=== PATIENT | female | born 1965 | race Caucasian/White ===

== ENCOUNTER 2016-04-10 09:25 | Emergency (ER) | payer OTHER ==
[2016-04-10 09:44] VITALS: TEMP 98.2
[2016-04-10] MEDS ORDERED: LIDOCAINE/EPINEPHR/TETRACAINE 5 ML BOTTLE TOPICAL ONE (10:13)
[2016-04-10] MEDS ORDERED: GELATIN SPONGE,ABSORB (LARGE) 1 EACH SPONGE TOPICAL STA (10:14)
--- NOTE | 2016-04-10 10:24 | ED ---
General Adult HPI - General Chief complaint: Wound/Laceration Stated complaint: abcess Time Seen by Provider: 04/10/16 09:46 Source: patient, RN notes reviewed Mode of arrival: ambulatory Limitations: no limitations - History of Present Illness Initial comments: Patient is a 50-year-old female presents emergency room for evaluation of bleeding wound. Patient states she had a skin tag removed on Monday by her primary care provider on her back. Patient states that the wound will not stop bleeding. Patient states she's been applying gauze and the wound will bleed through and get all over her sheets and mattress while she is sleeping. Patient states her cannot get the bleeding to stop. Patient states she takes aspirin but denies taking any blood thinners. Patient denies any pain at the area. Patient denies fevers, chills. Patient denies headache or dizziness. Patient denies any other symptoms or complaints. Patient states she just wants the bleeding to stop. - Related Data Home Medications Medication Instructions Recorded Confirmed Aspirin 1 tab PO DAILY 04/10/16 04/10/16 Fluticasone Propionate [Flonase 1 spray INHALATION DAILY 04/10/16 04/10/16 Allergy Relief] Losartan/Hydrochlorothiazide 1 tab PO DAILY 04/10/16 04/10/16 [Losartan-Hctz 100-25 mg Tab] Potassium Chloride [K-Tab ER] 1 tab PO DAILY 04/10/16 04/10/16 Spironolactone [Spironolactone] 1 tab PO DAILY 04/10/16 04/10/16 Allergies Allergy/AdvReac Type Severity Reaction Status Date / Time No Known Allergies Allergy Verified 04/10/16 09:44 Review of Systems ROS Statement: Those systems with pertinent positive or pertinent negative responses have been documented in the HPI. ROS Other: All systems not noted in ROS Statement are negative. Past Medical History Past Medical History: No Reported History History of Any Multi-Drug Resistant Organisms: None Reported Past Surgical History: No Surgical Hx Reported Past Psychological History: No Psychological Hx Reported Smoking Status: Never smoker Past Alcohol Use History: Occasional Past Drug Use History: None Reported General Exam - General Exam Comments Initial Comments: Sitting in exam room in no acute distress. Limitations: no limitations General appearance: alert, in no apparent distress Head exam: Present: atraumatic, normocephalic, normal inspection Neck exam: Present: normal inspection Respiratory exam: Absent: respiratory distress Extremities exam: Present: normal inspection Back exam: Present: normal inspection Neurological exam: Present: alert, oriented X3, CN II-XII intact, normal gait Psychiatric exam: Present: normal affect, normal mood Skin exam: Present: other (1cm superficial open actively bleeding wound on the left side of mid-back) Course Vital Signs 04/10/16 09:40 Temperature 98.2 F Pulse Rate 84 Respiratory 20 Rate Blood Pressure 139/86 O2 Sat by Pulse 99 Oximetry Medical Decision Making - Medical Decision Making Patient's 50-year-old female presents to the emergency room for evaluation of bleeding wound. LET solution was applied over the wound area for approximately 15 minutes and bleeding did subside. Gelfoam was placed over the wound. Advised patient to follow-up with her primary care provider for reevaluation. Patient states she understands discussed with her. Return parameters discussed. Case discussed with Dr. Ventura. Disposition Clinical Impression: Bleeding from wound Disposition: HOME SELF-CARE Condition: Good Instructions: Acute Wound Care (ED) Additional Instructions: Keep gel foam on for the next 48 hours. Please follow up with primary care provider next week for reevaluation. If any new symptom arises, symptoms worsen or fever develops, return to ER as soon as possible. Referrals: Al Loja MD [Primary Care Provider] - 1-2 days Time of Disposition: 10:43
[2016-04-10 10:49] VITALS: BP 132/79; PULSE 79; RESP 18
== END 2016-04-10 10:49 | disposition home or self-care (01) ==
LOC: EC 09:25
DX: L76.21 Postprocedural hemorrhage of skin and subcutaneous tissue following a dermatologic procedure (principal); Z79.82 Long term (current) use of aspirin; Z79.899 Other long term (current) drug therapy
CPT/HCPCS: 99283

== ENCOUNTER 2016-12-02 09:29 | Day surgery (SDC) | payer OTHER ==
[2016-12-01 07:59] VITALS: BMI 35.9
[~2016-12-02 09:29] MED LIST: LACTATED RINGERS 1,000 ML IV SCH
[2016-12-02 10:50] VITALS: RESP 16; TEMP 99
[2016-12-02] MEDS ORDERED: LIDOCAINE 1% 20 ML VIAL (10MG/ML) FOR IV START INTRADERMA ONE (10:56)
[2016-12-02] MEDS ORDERED: PROPOFOL 10 MG/ML 20 ML VIAL IV ONE (11:16)
--- NOTE | 2016-12-02 11:31 | P.PCN ---
Date of Procedure: 12/02/16 Preoperative Diagnosis: Postoperative Diagnosis: Procedure(s) Performed: BRIEF HISTORY: Patient is a 51-year-old pleasant ,white female, scheduled for an elective colonoscopy as a part of screening for colorectal neoplasia. PROCEDURE PERFORMED: Colonoscopy with snare polypectomy. PREOPERATIVE DIAGNOSIS: Screening for colon cancer. IV sedation per Anesthesia. PROCEDURE: After informed consent was obtained, the patient, was brought into the endoscopy unit. IV sedation was administered by Anesthesia under continuous monitoring. Digital rectal examination was normal. Initially the Olympus CF- 160 flexible video colonoscope was then inserted in the rectum, gradually advanced into the cecum without any difficulty. Careful examination was performed as the scope was gradually being withdrawn. Ileocecal valve and the appendiceal orifice were visualized and appeared normal. Prep was excellent. Mucosa of the cecum, appeared normal. In the ascending colon there were 2 polyps measuring 5 mm in size both of which were removed by snare polypectomy. The rest of the ascending colon, transverse colon, descending colon, sigmoid colon, and rectum appeared normal. Retroflexion was performed in the rectum and no lesions were seen. The patient tolerated the procedure well. IMPRESSION: 5 mm 2 ascending colon polyps status post polypectomy Rest of the colon appeared normal RECOMMENDATIONS: Findings of this examination were discussed with the patient as well as her family. She was advised to follow with the biopsy results. If the biopsy shows a tubular adenoma, she can have a repeat colonoscopy in 5 years. Implants: Indications for Procedure: Operative Findings: Description of Procedure:
[2016-12-02 11:38] VITALS: BP 139/95; PULSE 83
== END 2016-12-02 12:17 | disposition home or self-care (01) ==
LOC: ORWHC2ENDO 09:29
PROVIDERS: ATTEND Internal Medicine Gastroenterology
DX: Z12.11 Encounter for screening for malignant neoplasm of colon (principal); D12.2 Benign neoplasm of ascending colon; I10 Essential (primary) hypertension; Z79.82 Long term (current) use of aspirin; Z79.899 Other long term (current) drug therapy
CPT/HCPCS: 45385; 88305; J2704

== ENCOUNTER → 2017-03-24 | Outpatient (CLI) | payer OTHER ==
--- NOTE | 2017-03-24 14:46 | CT ---
EXAMINATION TYPE: CT elbow LT wo con DATE OF EXAM: 03/24/2017 COMPARISON: NONE HISTORY: Left elbow pain and limited range of motion for one week. No known injury. CT DLP: 201.2 mGycm Automated exposure control for dose reduction was used. FINDINGS: There is no evidence of acute fracture or dislocation of the elbow and the visualized portions of the distal humerus, elbow joint, proximal radius, or proximal ulna. Mild bony hypertrophic changes are s een at the olecranon, degenerative in nature. Mild soft tissue swelling is seen of the posterior lowe r forearm and over the olecranon. No focal fluid collection. No adenopathy. No evidence of joint effu lakia. No periosteal reaction or aggressive appearing osseous lesion. Given the limitations of CT musc le volume and attenuation appear symmetric and unremarkable IMPRESSION: 1. NO EVIDENCE OF ACUTE FRACTURE OR DISLOCATION OF THE LEFT ELBOW. NO JOINT EFFUSION TO INDICATE OCCU LT FRACTURE. MRI COULD BE PERFORMED IF THERE IS PERSISTENT PAIN TO EVALUATE FOR LIGAMENTOUS STRUCTURE S, TENDINOUS STRUCTURES AND NERVE BUNDLES. 2. MILD DEGENERATIVE CHANGES SURROUNDING THE OLECRANON. 3. MINIMAL SOFT TISSUE OF THE DORSAL CRANIAL FOREARM AND OVER THE OLECRANON.
== END | disposition home or self-care (01) ==
LOC: RADCTMAIN 12:05
PROVIDERS: ATTEND Orthopaedic Surgery
DX: M25.522 Pain in left elbow (principal)

== ENCOUNTER → 2017-08-04 | Outpatient (CLI) | payer BC ==
--- NOTE | 2017-08-08 08:09 | MM ---
Reason for exam: screening (asymptomatic). Last mammogram was performed 1 year and 1 month ago. History: Patient is postmenopausal. Family history of breast cancer in maternal grandmother at age 50. Physical Findings: A clinical breast exam by your physician is recommended on an annual basis and results should be correlated with mammographic findings. MG 3D Screening Mammo W/Cad Bilateral CC and MLO view(s) were taken. Prior study comparison: June 29, 2016, bilateral MG screening mammo w CAD. June 24, 2015, right breast MG 3d work up w/cad RT. The breast tissue is heterogeneously dense. This may lower the sensitivity of mammography. Finding: There are typically benign round, linear calcifications in both breasts. Asymmetric breast tissue in the left breast is stable. There is no discrete abnormality. ASSESSMENT: Benign, BI-RAD 2 RECOMMENDATION: Routine screening mammogram of both breasts in 1 year.
== END | disposition home or self-care (01) ==
LOC: RADMAMWWP 07:23
PROVIDERS: ATTEND Obstetrics & Gynecology
DX: Z12.31 Encounter for screening mammogram for malignant neoplasm of breast (principal)
CPT/HCPCS: 77063

== ENCOUNTER → 2018-08-10 | Outpatient (CLI) | payer BC ==
--- NOTE | 2018-08-14 14:13 | MM ---
Reason for exam: screening (asymptomatic). Last mammogram was performed 1 year ago. History: Patient is postmenopausal. Family history of breast cancer in maternal grandmother at age 50. Physical Findings: A clinical breast exam by your physician is recommended on an annual basis and results should be correlated with mammographic findings. MG 3D Screening Mammo W/Cad Bilateral CC and MLO view(s) were taken. Prior study comparison: August 04, 2017, bilateral MG 3d screening mammo w/cad. June 29, 2016, bilateral MG screening mammo w CAD. There are scattered fibroglandular densities. There is chronic nodularity in the right breast. No significant changes when compared with prior studies. ASSESSMENT: Benign, BI-RAD 2 RECOMMENDATION: Routine screening mammogram of both breasts in 1 year.
== END ==
LOC: RADMAMWWP 16:19
PROVIDERS: ATTEND Obstetrics & Gynecology
DX: Z12.31 Encounter for screening mammogram for malignant neoplasm of breast (principal); Z80.3 Family history of malignant neoplasm of breast
CPT/HCPCS: 77063; 77067

== ENCOUNTER → 2020-01-10 | Outpatient (CLI) | payer BC ==
--- NOTE | 2020-01-14 11:12 | MM ---
Reason for exam: screening (asymptomatic). Last mammogram was performed 1 year and 5 months ago. History: Patient is postmenopausal. Family history of breast cancer in maternal grandmother at age 50. Physical Findings: A clinical breast exam by your physician is recommended on an annual basis and results should be correlated with mammographic findings. MG 3D Screening Mammo W/Cad Bilateral CC and MLO view(s) were taken. Prior study comparison: August 10, 2018, bilateral MG 3d screening mammo w/cad. August 04, 2017, bilateral MG 3d screening mammo w/cad. There are scattered fibroglandular densities. There is chronic nodularity in the right breast. No significant changes when compared with prior studies. ASSESSMENT: Negative, BI-RAD 1 RECOMMENDATION: Routine screening mammogram of both breasts in 1 year.
== END | disposition home or self-care (01) ==
LOC: RADMAMWWP 10:19
PROVIDERS: ATTEND Internal Medicine
DX: Z12.31 Encounter for screening mammogram for malignant neoplasm of breast (principal)
CPT/HCPCS: 77063; 77067

== ENCOUNTER → 2021-02-19 | Outpatient (CLI) | payer BC ==
--- NOTE | 2021-02-23 09:41 | MM ---
Reason for exam: screening (asymptomatic). Last mammogram was performed 1 year and 1 month ago. History: Patient is postmenopausal. Family history of breast cancer in maternal grandmother at age 50. Physical Findings: A clinical breast exam by your physician is recommended on an annual basis and results should be correlated with mammographic findings. MG 3D Screening Mammo W/Cad Bilateral CC and MLO view(s) were taken. Prior study comparison: January 10, 2020, bilateral MG 3d screening mammo w/cad. August 10, 2018, bilateral MG 3d screening mammo w/cad. There are scattered fibroglandular densities. Focal asymmetry right outer middle breast. No significant changes when compared with prior studies. ASSESSMENT: Benign, BI-RAD 2 RECOMMENDATION: Routine screening mammogram of both breasts in 1 year.
== END | disposition home or self-care (01) ==
LOC: RADMAMWWP 08:39
PROVIDERS: ATTEND Internal Medicine
DX: Z12.31 Encounter for screening mammogram for malignant neoplasm of breast (principal); Z80.3 Family history of malignant neoplasm of breast; Z78.0 Asymptomatic menopausal state
CPT/HCPCS: 77063; 77067

== ENCOUNTER → 2022-02-21 | Outpatient (CLI) | payer BC ==
--- NOTE | 2022-02-22 08:43 | MM ---
Reason for Exam: Screening (asymptomatic). Last screening mammogram was performed 12 month(s) ago. Patient History: Menarche at age 12. First Full-Term at age 22. Postmenopausal. Maternal grandmother had breast cancer, age 50. Risk Values: Pushpa 5 year model risk: 1.1%. NCI Lifetime model risk: 7.2%. Prior Study Comparison: 08/10/2018 Bilateral Screening Mammogram, [facility]. 01/10/2020 Bilateral Screening Mammogram, [facility]. 02/19/2021 Bilateral Screening Mammogram, [facility]. Tissue Density: There are scattered fibroglandular densities. Findings: Analyzed By CAD. Stable small circumscribed masses throughout the bilateral breasts. There is no suspicious group of microcalcifications or new enlarging mass in in either breast. Overall Assessment: Negative, BI-RAD 1 Management: Screening Mammogram of both breasts in 1 year. A clinical breast exam by your physician is recommended on an annual basis and results should be correlated with mammographic findings. Electronically signed and approved by: Rajan Sidhu M.D.
== END | disposition home or self-care (01) ==
LOC: RADMAMWWP 07:17
PROVIDERS: ATTEND Family Medicine
DX: Z12.31 Encounter for screening mammogram for malignant neoplasm of breast (principal); Z78.0 Asymptomatic menopausal state; Z80.3 Family history of malignant neoplasm of breast
CPT/HCPCS: 77063; 77067

== ENCOUNTER 2022-04-20 09:25 | Day surgery (SDC) | payer BC ==
[2022-04-15 16:03] VITALS: BMI 38.0
[2022-04-20] MEDS ORDERED: LIDOCAINE 1% (10MG/ML) FOR IV START INTRADERMA PRN (10:26)
[2022-04-20] MEDS ORDERED: ONDANSETRON 4 MG/2 ML VIAL IVP PRN (10:26)
[2022-04-20] MEDS ORDERED: LACTATED RINGERS 1,000 ML IV SCH (10:26)
[2022-04-20 10:34] VITALS: TEMP 98
[2022-04-20] MEDS ORDERED: LACTATED RINGERS 1,000 ML IV ONE (10:34)
[2022-04-20] MEDS ORDERED: PROPOFOL 10 MG/ML 20 ML VIAL IV ONE (11:48)
--- NOTE | 2022-04-20 12:07 | P.PCN ---
Date of Procedure: 04/20/22 Procedure(s) Performed: BRIEF HISTORY: Patient is a a 6-year-old pleasant white female scheduled for an elective colonoscopy as a part of evaluation of prior history of colon polyps. Her last colonoscopy was 5 years ago. PROCEDURE PERFORMED: Colonoscopy. PREOPERATIVE DIAGNOSIS: History of colon polyps. IV sedation per Anesthesia. PROCEDURE: After informed consent was obtained, the patient, was brought into the endoscopy unit. IV sedation was administered by Anesthesia under continuous monitoring. Digital rectal examination was normal. Initially the Olympus CF-160 flexible video colonoscope was then inserted in the rectum, gradually advanced into the cecum without any difficulty. Careful examination was performed as the scope was gradually being withdrawn. Ileocecal valve and the appendiceal orifice were visualized and appeared normal. Prep was excellent. Mucosa of the cecum, ascending colon, transverse colon, descending colon, sigmoid colon, and rectum appeared normal. At her sigmoid diverticulosis. Retroflexion was performed in the rectum and no lesions were seen. The patient tolerated the procedure well. IMPRESSION: Normal-appearing colon from rectum to cecum with no evidence of colorectal neoplasia . Scattered sigmoid diverticulosis. RECOMMENDATIONS: Findings of this examination were discussed with the patient as well as her family. She was advised to have a repeat colonoscopy in 5 years because of the prior history of colon polyps..
[2022-04-20 12:30] VITALS: BP 135/80; PULSE 82; RESP 15
== END 2022-04-20 12:55 | disposition home or self-care (01) ==
LOC: ORWHC2ENDO 09:25
PROVIDERS: ATTEND Internal Medicine Gastroenterology
DX: Z12.11 Encounter for screening for malignant neoplasm of colon (principal); K57.30 Diverticulosis of large intestine without perforation or abscess without bleeding; I10 Essential (primary) hypertension; K21.9 Gastro-esophageal reflux disease without esophagitis; Z79.899 Other long term (current) drug therapy; Z86.010 Personal history of colon polyps; Z79.82 Long term (current) use of aspirin
CPT/HCPCS: 45378; J2704

== ENCOUNTER → 2023-02-22 | Outpatient (CLI) | payer BC ==
--- NOTE | 2023-02-23 10:44 | MM ---
Reason for Exam: Screening (asymptomatic). Last screening mammogram was performed 12 month(s) ago. Patient History: Menarche at age 12. First Full-Term at age 22. Postmenopausal. Maternal grandmother had breast cancer, age 50. Risk Values: Pushpa 5 year model risk: 1.1%. NCI Lifetime model risk: 7.1%. Prior Study Comparison: 06/29/2016 Bilateral Screening Mammogram, [facility]. 08/04/2017 Bilateral Screening Mammogram, [facility]. 08/10/2018 Bilateral Screening Mammogram, [facility]. 01/10/2020 Bilateral Screening Mammogram, [facility]. 02/19/2021 Bilateral Screening Mammogram, [facility]. 02/21/2022 Bilateral MG 3D screening mammo w/cad, [facility]. Tissue Density: There are scattered fibroglandular densities. Findings: Analyzed By CAD. There is no suspicious group of microcalcifications or new suspicious mass in either breast. Overall Assessment: Negative, BI-RAD 1 Management: Screening Mammogram of both breasts in 1 year. . Patient should continue monthly self-breast exams. A clinical breast exam by your physician is recommended on an annual basis. This exam should not preclude additional follow-up of suspicious palpable abnormalities. Note on Pushpa scores and lifetime risk: 1. A Pushpa score greater than 3% is considered moderate risk. If this is the case, consider specialist referral to assess eligibility for a risk reducing agent. 2. If overall lifetime risk for the development of breast cancer is 20% or higher, the patient may qualify for future screening with alternating mammogram and breast MRI. Electronically signed and approved by: Carlitos Robertson M.D. Radiologis
== END | disposition home or self-care (01) ==
LOC: RADMAMWWP 07:34
PROVIDERS: ATTEND Family Medicine
DX: Z12.31 Encounter for screening mammogram for malignant neoplasm of breast (principal); Z78.0 Asymptomatic menopausal state; Z80.3 Family history of malignant neoplasm of breast
CPT/HCPCS: 77063; 77067

== ENCOUNTER → 2024-02-27 | Outpatient (CLI) | payer BC ==
--- NOTE | 2024-02-27 15:52 | MM ---
Reason for Exam: Screening (asymptomatic). Last mammogram was performed 1 year(s) and 1 month(s) ago. Patient History: Menarche at age 12. First Full-Term at age 22. Postmenopausal. Maternal grandmother had breast cancer, age 50. Risk Values: Pushpa 5 year model risk: 1.2%. NCI Lifetime model risk: 6.9%. Prior Study Comparison: 02/19/2021 Bilateral Screening Mammogram, [facility]. 02/21/2022 Bilateral MG 3D screening mammo w/cad, [facility]. 02/22/2023 Bilateral MG 3D screening mammo w/cad, [facility]. Tissue Density: There are scattered areas of fibroglandular density. Findings: Analyzed By CAD. Chronic nodularity and unchanged areas of asymmetric density on the right. There is no suspicious group of microcalcifications or new suspicious mass in either breast. Overall Assessment: Benign, BI-RAD 2 Management: Screening Mammogram of both breasts in 1 year. Patient should continue monthly self-breast exams. A clinical breast exam by your physician is recommended on an annual basis. This exam should not preclude additional follow-up of suspicious palpable abnormalities. Note on Pushpa scores and lifetime risk: 1. A Pushpa score greater than 3% is considered moderate risk. If this is the case, consider specialist referral to assess eligibility for a risk reducing agent. 2. If overall lifetime risk for the development of breast cancer is 20% or higher, the patient may qualify for future screening with alternating mammogram and breast MRI. [facility], , 02/27/2024 3:48 PM. Electronically signed and approved by: Petar Angulo M.D. Radiologist
== END | disposition home or self-care (01) ==
LOC: RADMAMWWP 06:55
PROVIDERS: ATTEND Family Medicine
DX: Z12.31 Encounter for screening mammogram for malignant neoplasm of breast (principal); Z78.0 Asymptomatic menopausal state; Z80.3 Family history of malignant neoplasm of breast; R92.323 Mammographic fibroglandular density, bilateral breasts
CPT/HCPCS: 77063; 77067